=== PATIENT | male | born 1980 | race Caucasian/White ===

== ENCOUNTER 2022-01-15 10:54 | Day surgery (SDC) | payer OTHER ==
[2022-01-14 11:57] VITALS: BMI 26.3
[2022-01-15] MEDS ORDERED: Midazolam HCl 2 mg/2 ml Vial ONE ×2 (11:59→12:12)
[2022-01-15] MEDS ORDERED: EPINEPHrine 1 MG/ML AMP ONE ×2 (12:01→12:16)
[2022-01-15] MEDS ORDERED: Bupivacaine PF 0.5% 30 ML VIAL ONE (12:01)
[2022-01-15] MEDS ORDERED: Lidocaine 1% PF 5 ML VIAL ONE (12:12)
[2022-01-15] MEDS ORDERED: Dexamethasone 20 MG/5 ML VIAL ONE (12:12)
[2022-01-15] MEDS ORDERED: Ondansetron PF 4 MG/2 ML Vial ONE (12:12)
[2022-01-15] MEDS ORDERED: PROPOFOL 20 ML ONE ×2 (12:12→12:44)
[2022-01-15] MEDS ORDERED: Ketorolac Tromethamine 30 MG/ML VIAL ONE (12:12)
[2022-01-15] MEDS ORDERED: Fentanyl 100 MCG/2 ML VIAL ONE ×2 (12:12→13:55)
[2022-01-15] MEDS ORDERED: CEFAZOLIN 2 GM VIAL ONE (12:30)
== END 2022-01-15 16:40 | disposition home or self-care (01) ==
LOC: CSHSDC 10:54
PROVIDERS: ATTEND Orthopaedic Surgery Sports Medicine
PROC: 0RBM4ZZ Excision of Left Elbow Joint, Percutaneous Endoscopic Approach (ICD-10-PCS; principal; 2022-01-15)
PROC: 0QC Lower Bones, Extirpation (ICD-10-PCS; principal; 2022-01-15)
DX: M25.721 Osteophyte, right elbow (principal); T84.84XA Pain due to internal orthopedic prosthetic devices, implants and grafts, initial encounter; M79.672 Pain in left foot; I10 Essential (primary) hypertension; F41.9 Anxiety disorder, unspecified; F32.A Depression, unspecified; Z79.899 Other long term (current) drug therapy; Z20.822 Contact with and (suspected) exposure to COVID-19; Z98.890 Other specified postprocedural states
CPT/HCPCS: J0171; J0690; J1100; J1885; J2250; J2405; J2704; J3010; S0020